=== PATIENT | male | born 1960 | race Caucasian/White ===

== ENCOUNTER → 2016-12-08 | Outpatient (CLI) | payer BC ==
--- NOTE | 2016-12-09 10:50 | ECHOF ---
Referral Reason:R00.2 Palpitations MEASUREMENTS -------- HEIGHT: 170.2 cm WEIGHT: 88.5 kg BP: RVIDd: 2.7 cm (< 3.3) IVSd: 1.1 cm (0.6 - 1.1) LVIDd: 5.1 cm (3.9 - 5.3) LVPWd: 1.0 cm (0.6 - 1.1) IVSs: 1.4 cm LVIDs: 3.2 cm LVPWs: 1.6 cm LA Diam: 4.1 cm (2.7 - 3.8) Ao Diam: 3.3 cm (2.0 - 3.7) AV Cusp: 1.7 cm (1.5 - 2.6) LA Diam: 4.3 cm (2.7 - 3.8) MV EXCURSION: 20.130 mm (> 18.000) MV EF SLOPE: 144 mm/s (70 - 150) EPSS: 0.3 cm MV E Vernon: 0.56 m/s MV DecT: 162 ms MV A Vernon: 0.71 m/s MV E/A Ratio: 0.80 AR PHT: 468 ms RAP: 5.00 mmHg RVSP: 26.36 mmHg FINDINGS -------- Sinus rhythm. This was a technically good study. There is borderline concentric left ventricular hypertrophy. Overall left ventricular systolic function is mildly impaired with, an EF between 45 - 50 %. The right ventricle is normal in size. The left atrial size is normal. The right atrial size is normal. CONCLUSIONS -------- 1. There is borderline concentric left ventricular hypertrophy. MERCHANDISE WORKER: Mary Cunha RDCS
== END | disposition home or self-care (01) ==
LOC: RADECHMAIN 14:58
PROVIDERS: ATTEND Internal Medicine
DX: I51.7 Cardiomegaly (principal)
CPT/HCPCS: 93306

== ENCOUNTER → 2017-01-01 | Outpatient (CLI) | payer BC ==
--- NOTE | 2017-01-01 08:31 | XR ---
Bilateral knees HISTORY: Bilateral knee pain 3 views of each knee are submitted. There is marginal spurring present in the medial compartments, joint space slightly reduced in the me dial compartment within the left knee. No evident joint effusions, spurring present at the patellofem oral joints. IMPRESSION: Osteoarthritis.
== END | disposition home or self-care (01) ==
LOC: RADXRMAIN 08:05
PROVIDERS: ATTEND Internal Medicine
DX: M17.0 Bilateral primary osteoarthritis of knee (principal)

== ENCOUNTER → 2017-01-21 | Outpatient (CLI) | payer BC ==
[2017-01-21 11:58] LABS: CH 32.3; CHCM 34.1; HCT 51.9 % (39.0-53.0); HDW 2.41; HGB 17.1 gm/dL (13.0-17.5); MCH 31.4 pg (25.0-35.0); MCV 95.2 fL (80.0-100.0); Mean Platelet Volume 8.7; RBC 5.45 m/uL (4.30-5.90); RDW 13.4 % (11.5-15.5); WBC 6.8 k/uL (3.8-10.6)
[2017-01-21 12:13] LABS: Anion Gap 8 mmol/L; Blood Urea Nitrogen 9 mg/dL (9-20); Carbon Dioxide 30 mmol/L (22-30); Chloride 102 mmol/L (98-107); Non-African American GFR(MDRD) >60 (>60 ml/min/1.73 sqM); Potassium 4.9 mmol/L (3.5-5.1); Sodium 140 mmol/L (137-145)
== END | disposition home or self-care (01) ==
LOC: LABPAT 11:00
PROVIDERS: ATTEND Internal Medicine Interventional Cardiology
DX: Z01.812 Encounter for preprocedural laboratory examination (principal); R94.30 Abnormal result of cardiovascular function study, unspecified
CPT/HCPCS: 80051; 82565; 84520; 85027

== ENCOUNTER 2017-01-29 06:02 | Day surgery (SDC) | payer BC ==
[~2017-01-29 06:02] MED LIST: ALPRAZolam 0.25 MG TAB PO PRN; ALPRAZolam 0.5 MG TAB PO PRN; ASPIRIN 325 MG TAB PO STA; ATORVASTATIN 80 MG TAB PO STA; NITROGLYCERIN SL TABS 0.4 MG TAB SUBLINGUAL PRN; SODIUM CHLORIDE 0.9% 1,000 ML in EMPTY BAG 1 BAG IV ONE
[2017-01-29 06:28] VITALS: TEMP 98.1
[2017-01-29] MEDS ORDERED: fentaNYL (PF) 50 MCG/ML 2 ML AMP IV ONE (07:33)
[2017-01-29] MEDS ORDERED: LIDOCAINE 2% INJ 20 MG/ML SQ ONE (07:35)
[2017-01-29] MEDS ORDERED: VERAPAMIL SYRINGE (5 MG/10 ML) INTRAARTER ONE (07:41)
[2017-01-29] MEDS ORDERED: IOHEXOL 350 MG/ML 125ML BOTTLE INJ ONE (07:52)
[2017-01-29] MEDS ORDERED: RX INFO: IV CONTRAST WAS GIVEN 1 EACH MISC MISCELLANE PRN (08:06)
[2017-01-29] MEDS ORDERED: MOMETASONE INHALATION PRN (08:07)
[2017-01-29] MEDS ORDERED: FORMOTEROL INHALATION PRN (08:07)
[2017-01-29] MEDS ORDERED: LORazepam 1 MG TAB PO PRN (08:07)
[2017-01-29 08:14] VITALS: RESP 16
[2017-01-29] MEDS ORDERED: SODIUM CHLORIDE 0.9% 1,000 ML IV SCH (08:15)
[2017-01-29] MEDS ORDERED: buPROPion 100 MG TAB PO SCH (09:00)
[2017-01-29] MEDS ORDERED: PRAVASTATIN SODIUM 20 MG TAB PO SCH (09:00)
[2017-01-29] MEDS ORDERED: METOPROLOL TARTRATE 50 MG TAB PO SCH (09:00)
[2017-01-29 09:54] VITALS: BP 112/68; PULSE 62
--- NOTE | 2017-01-29 18:31 | CC ---
DATE OF SERVICE: Mr. Roldan is 56-year-old male with no prior documented history of coronary artery disease, who has been noted to have frequent ventricular ectopic activity. Subsequently underwent a myocardial perfusion imaging that revealed evidence of inducible ischemia with impaired left ventricular systolic function. In view of that, recommendation made regarding cardiac catheterization. The procedure as well as the risks and complications were discussed with the patient who is in full understanding and agreement. PROCEDURE: The patient was brought to the Maintenance Planner in a fasting, semi-sedate state after receiving fentanyl and Benadryl and achieving moderate conscious sedated state, using Xylocaine anesthesia and Seldinger techniques, 6 Namibian sheath was introduced in the right radial artery. Selective right and left coronary angiography was performed using 5 Namibian 3-1/2 Bend right and left Jovana catheters. Multiple view of the coronary arteries including hemiaxial views were obtained. Following that, a 5 [place]ibian tight pigtail catheter was introduced into the left ventricle and a 30 degrees RODRIGUEZ view of the left ventricle was obtained. Following that, catheter and sheaths were removed. Hemostasis was obtained with deployment of TR band. There were no immediate complications. Patient was returned to his room in stable condition. Of note, the patient received 4500 units of intravenous heparin. FINDINGS: LEFT MAIN: This is a short-sized vessel bifurcating into the left circumflex, left anterior descending artery. Left main coronary artery is without any significant obstructive disease. LEFT ANTERIOR DESCENDING ARTERY: This is a large-size vessel reaching toward the apex with a wrap around the apex segment, giving rise to 3 diagonal branches. The third one is moderate in caliber. The others are small in caliber. The left anterior descending artery after the takeoff of the diagonal branch has mild plaque of 10%. The rest of the vessel has no high-grade stenosis. Left circumflex: This is a large dominant vessel, giving rise to a large proximal obtuse marginal branch distally bifurcating into PDA and posterolateral segment and branches. The left circumflex as well as its branches have no evidence of obstructive coronary artery disease. Right coronary artery: This is a small nondominant vessel that has no evidence of high-grade stenosis. LEFT VENTRICULOGRAM: Left ventriculogram was performed in 30 degrees RODRIGUEZ view and revealed normal left ventricular size and systolic function. Ejection fraction 55%. There was no significant mitral regurgitation. HEMODYNAMICS: There was no gradient across the aortic valve. The left ventricular end-diastolic pressure was 18 mmHg. Duration of procedure: 25 minutes. RESULT: 1. Minimal intimal disease involving the mid left anterior descending. 2. Normal left ventricular size and systolic function. 3. Dominant left coronary system. RECOMMENDATION: In view of findings and anatomy, I recommend continued medical therapy with aggressive coronary risk factor modifications that have been initiated. Those findings and recommendations were discussed with the patient and his family who are in full understanding and agreement.
--- NOTE | 2017-01-29 18:33 | LTR ---
January 29, 2017 RE: JamarIsra Dear Dr. David: I had the pleasure of performing cardiac catheterization on Mr. Roldan at [facility] on January 29. A copy of procedure note will be forwarded to you. In brief, he was found to have minimal plaque in the mid left anterior descending with a preserved systolic function. Based on those findings, I recommend continued medical therapy with aggressive coronary risk factor modifications that you have initiated. Thank you again for allowing me to participate in his care. Please feel free to call for questions. Sincerely, MELIZA PIZANO MD
[2017-01-29] MEDS ORDERED: NON-FORMULARY DRUG (Trazodone Hcl [Trazodone Hcl] 150 MG) PO SCH (21:00)
== END 2017-01-29 13:05 | disposition home or self-care (01) ==
LOC: CATHCVL 06:02
PROVIDERS: ATTEND Internal Medicine Interventional Cardiology
DX: I25.10 Atherosclerotic heart disease of native coronary artery without angina pectoris (principal); R94.39 Abnormal result of other cardiovascular function study; I42.9 Cardiomyopathy, unspecified; R00.2 Palpitations; E78.2 Mixed hyperlipidemia; J45.909 Unspecified asthma, uncomplicated; G47.33 Obstructive sleep apnea (adult) (pediatric); E78.00 Pure hypercholesterolemia, unspecified; Z82.49 Family history of ischemic heart disease and other diseases of the circulatory system; Z79.82 Long term (current) use of aspirin; Z79.52 Long term (current) use of systemic steroids; Z79.899 Other long term (current) drug therapy; Z91.09 Other allergy status, other than to drugs and biological substances
CPT/HCPCS: 93458; 99152; 99153; C1894; C1769; J2001; J3010; J1644; Q9967

== ENCOUNTER → 2019-03-16 | Outpatient (CLI) | payer BC ==
--- NOTE | 2019-03-16 15:45 | US ---
EXAMINATION TYPE: US kidneys/renal and bladder DATE OF EXAM: 03/16/2019 COMPARISON: NONE CLINICAL HISTORY: N18.9 Chronic kidney disease. 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 Low-lying right kidney is redemonstrated No nephrolithiasis is seen. No masses are identified. The urinary bladder is anechoic. Bilateral ureteral jets are not seen. IMPRESSION: No hydronephrosis is evident bilaterally.
== END | disposition home or self-care (01) ==
LOC: RADUSWWP 14:55
PROVIDERS: ATTEND Internal Medicine
DX: N18.9 Chronic kidney disease, unspecified (principal)
CPT/HCPCS: 76770

== ENCOUNTER 2019-05-26 12:53 | Day surgery (SDC) | payer BC ==
[2019-05-23 16:11] VITALS: BMI 29.7
[~2019-05-26 12:53] MED LIST changes: -ALPRAZolam 0.25 MG TAB PO PRN; -ALPRAZolam 0.5 MG TAB PO PRN; -ASPIRIN 325 MG TAB PO STA; -ATORVASTATIN 80 MG TAB PO STA; +DEXAMETHASONE SOD PHOSPHATE 10 MG/ML 1 ML VIAL IV ONE; +HEPARIN SODIUM,PORCINE 5,000 UNIT/ML 1 ML VIAL SQ ONE; +HYDROmorphone 0.5 MG/0.5 ML SYRINGE IVP PRN; +LACTATED RINGERS 1,000 ML IV SCH; +LIDOCAINE 1% 20 ML VIAL (10MG/ML) FOR IV START INTRADERMA PRN; -NITROGLYCERIN SL TABS 0.4 MG TAB SUBLINGUAL PRN; +ONDANSETRON 4 MG/2 ML VIAL IVP ONE; +SCOPOLAMINE 1.5MG/72HR PATCH TRANSDERM ONE; -SODIUM CHLORIDE 0.9% 1,000 ML in EMPTY BAG 1 BAG IV ONE
[2019-05-26] MEDS ORDERED: MIDAZOLAM (PF) 2 MG/2 ML VIAL IV ONE (13:48)
[2019-05-26] MEDS ORDERED: fentaNYL (PF) 50 MCG/ML 2 ML AMP IV ONE (13:49)
--- NOTE | 2019-05-26 14:18 | P.ANPRN ---
Procedure Note - Anesthesia - Nerve Block Performed Bilateral Rectus Abdominis Single Time Out Performed: Yes Date of Procedure: 05/26/19 Procedure Start Time: 13:48 Procedure Stop Time: 13:58 Location of Patient Procedure: PreOp Indication: Acute Post-Operative Pain, Requested by Surgeon Sedation Type: Sedate with meaningful contact maintained Preparation: Sterile Prep Position: Supine Catheter: None Needle Types: Pajunk Needle Gauge: 21 Ultrasound used to visualize needle placement: Yes Ultrasound used to observe medication spread: Yes Injectate: 0.5% Ropivacaine (see comment for volume) (12 cc + 2 mg dexamethasone per side) Blood Aspirated: No Pain Paresthesia on Injection Noted: No Resistance on Injection: Normal Image Stored and Saved: Yes Events: Uneventful and Well Tolerated
[2019-05-26] MEDS ORDERED: ROPIVACAINE 5 MG/ML 30 ML VIAL ONE (14:29)
[2019-05-26] MEDS ORDERED: DEXAMETHASONE SOD PHOSPHATE 4 MG/ML 1 ML VIAL ONE (14:29)
[2019-05-26] MEDS ORDERED: LIDOCAINE 1% INJ 10MG/ML (20 ML MDV) ONE (14:29)
[2019-05-26] MEDS ORDERED: NEOSTIGMINE 1 MG/ML 10 ML VIAL ONE (14:29)
[2019-05-26] MEDS ORDERED: fentaNYL (PF) 50 MCG/ML 2 ML AMP ONE (14:29)
[2019-05-26] MEDS ORDERED: MIDAZOLAM 2 MG/2 ML VIAL ONE (14:29)
[2019-05-26] MEDS ORDERED: GLYCOPYRROLATE 0.2 MG/ML 2 ML VIAL ONE (14:29)
[2019-05-26] MEDS ORDERED: ROCURONIUM BROMIDE 10 MG/ML 10 ML VIAL IV ONE (14:29)
[2019-05-26] MEDS ORDERED: PROPOFOL 10 MG/ML 20 ML VIAL IV ONE (14:29)
[2019-05-26] MEDS ORDERED: BUPIVACAINE (PF) 0.25% 30 ML VIAL SQ ONE ×2 (14:31→15:04)
--- NOTE | 2019-05-26 15:20 | P.OP ---
Date of Procedure: 05/26/19 Preoperative Diagnosis: incarcerated umbilical hernia Postoperative Diagnosis: Same Procedure(s) Performed: Repair of incarcerated umbilical hernia with mesh Anesthesia: GETA Estimated Blood Loss (ml): 2 Condition: stable Disposition: same day Description of Procedure: Patient is brought operative suite remained in the supine position underwent general endotracheal anesthesia per Department of anesthesia prepped and draped in the usual sterile fashion timeout performed correct patient correct procedure correct site was verified. A 4 cm curvilinear incision was made just inferior to the umbilicus carried down to the fascia of the umbilicus was then bluntly encircled and the hernia sac was removed from the umbilical stalk using Bovie cautery and Metzenbaum scissors. The incarcerated umbilical hernia was noted to be containing omentum. This was ligated and sent to pathology. The hernia was then reduced was noted to be approximately 1 cm. A small ventral ex mesh was placed and interrupted 0 Vicryl suture was used to suture in the mesh closing the hernia defect. The wound was then irrigated hemostasis was achieved the umbilicus was tacked back down the fascia using 3-0 Vicryl. The skin was then closed in layers using 3-0 Vicryl subdermal sutures followed by 4-0 running subcuticular Vicryl sutures. Sterile dressing was applied patient tolerated the procedure well no apparent complications Plan - Discharge Summary Discharge Rx Participant: No New Discharge Prescriptions: No Action Mometasone/Formoterol [Dulera 200 Mcg/5 Mcg Inhaler] 1 inhalation INHALATION DIRECTED PRN PRN Reason: Shortness Of Breath Pravastatin Sodium [Pravachol] 20 mg PO DAILY Metoprolol Tartrate [Lopressor] 50 mg PO BID LORazepam [Ativan] 1 mg PO BID PRN PRN Reason: Anxiety buPROPion [Wellbutrin] 450 mg PO DAILY Multivitamins, Thera [Multivitamin (formulary)] 1 tab PO DAILY Montelukast [Singulair] 10 mg PO DAILY Fenofibrate (Unkn.Dose) 1 tab PO DAILY Aspirin [Adult Low Dose Aspirin EC] 81 mg PO DAILY Finasteride [Proscar] 5 mg PO DAILY Discharge Medication List LORazepam [Ativan] 1 mg PO BID PRN 01/26/17 [History] Metoprolol Tartrate [Lopressor] 50 mg PO BID 01/26/17 [History] Mometasone/Formoterol [Dulera 200 Mcg/5 Mcg Inhaler] 1 inhalation INHALATION DIRECTED PRN 01/26/17 [History] Pravastatin Sodium [Pravachol] 20 mg PO DAILY 01/26/17 [History] buPROPion [Wellbutrin] 450 mg PO DAILY 01/26/17 [History] Aspirin [Adult Low Dose Aspirin EC] 81 mg PO DAILY 05/23/19 [History] Fenofibrate (Unkn.Dose) 1 tab PO DAILY 05/23/19 [History] Finasteride [Proscar] 5 mg PO DAILY 05/23/19 [History] Montelukast [Singulair] 10 mg PO DAILY 05/23/19 [History] Multivitamins, Thera [Multivitamin (formulary)] 1 tab PO DAILY 05/23/19 [History]
[2019-05-26 15:33] VITALS: TEMP 96.9
[2019-05-26 16:12] VITALS: RESP 16
[2019-05-26] MEDS ORDERED: HYDROcodone/APAP 5-325MG 1 EACH TAB PO ONE (16:42)
[2019-05-26 17:02] VITALS: BP 112/75; PULSE 79
== END 2019-05-26 17:40 | disposition home or self-care (01) ==
LOC: OR 12:53
PROVIDERS: ATTEND Student in an Organized Health Care Education/Training Program
DX: K42.0 Umbilical hernia with obstruction, without gangrene (principal); E78.5 Hyperlipidemia, unspecified; N28.9 Disorder of kidney and ureter, unspecified; N40.0 Benign prostatic hyperplasia without lower urinary tract symptoms; J45.909 Unspecified asthma, uncomplicated; M19.90 Unspecified osteoarthritis, unspecified site; F41.9 Anxiety disorder, unspecified; F32.9 Major depressive disorder, single episode, unspecified; K21.9 Gastro-esophageal reflux disease without esophagitis; Z79.82 Long term (current) use of aspirin; Z79.51 Long term (current) use of inhaled steroids; Z79.899 Other long term (current) drug therapy; Z82.5 Family history of asthma and other chronic lower respiratory diseases; Z81.8 Family history of other mental and behavioral disorders; Z91.018 Allergy to other foods; Z91.013 Allergy to seafood; Z91.048 Other nonmedicinal substance allergy status
CPT/HCPCS: 64488; 88302; 49587; C1781; J2250 ×2; J1644; J1100 ×2; J2710; J0690; J2405; J2001; J3010; J2795; J2704

== ENCOUNTER → 2019-10-03 | Outpatient (CLI) | payer BC ==
[2019-10-03 09:26] LABS: Basophils % (A) 1 %; Eosinophils # (A) 0.4 k/uL (0-0.7); Eosinophils % (A) 7 %; HCT 44.7 % (39.0-53.0); HGB 14.9 gm/dL (13.0-17.5); Lymphocytes # (A) 1.4 k/uL (1.0-4.8); Lymphocytes % (A) 23 %; MCH 30.8 pg (25.0-35.0); MCHC 33.2 g/dL (31.0-37.0); MCV 92.8 fL (80.0-100.0); Mean Platelet Volume 8.1; Monocytes # (A) 0.4 k/uL (0-1.0); Monocytes % (A) 7 %; Neutrophils # (A) 3.7 k/uL (1.3-7.7); Neutrophils % (A) 60 %; Platelet Count 211 k/uL (150-450); RBC 4.82 m/uL (4.30-5.90); RDW 12.6 % (11.5-15.5); WBC 6.2 k/uL (3.8-10.6)
[2019-10-03 17:55] LABS: African American GFR (CKD) 64.2 (60.0-200.0); Albumin 4.5 g/dL (3.80-4.90); Albumin/Globulin Ratio 1.96 (1.60-3.17); Anion Gap 5.5 mmol/L (4.00-12.00); BUN/Creat Ratio 13.57 Ratio (12.00-20.00); Calcium 10.1 mg/dL (8.7-10.3); Carbon Dioxide 28.5 mmol/L (21.6-31.8); Chol/HDL Ratio 3.36; Globulin 2.3 g/dL (1.6-3.3); LDL Cholesterol,Calculated 96.4 mg/dL (0.0-131.0); Non-African American GFR(CKD) 55.4 (60.0-200.0); Potassium 4.4 mmol/L (3.5-5.5); Total Bilirubin 0.6 mg/dL (0.2-1.2); Total Protein 6.8 g/dL (6.2-8.2); VLDL Calculation 42.6 mg/dL (5.00-40.00)
[2019-10-03 19:05] LABS: Hemoglobin A1C 5.3 % (4.0-6.0)
== END | disposition home or self-care (01) ==
LOC: LABWHC1 07:38
PROVIDERS: ATTEND Internal Medicine
DX: I12.9 Hypertensive chronic kidney disease with stage 1 through stage 4 chronic kidney disease, or unspecified chronic kidney disease (principal); N18.3 Chronic kidney disease, stage 3 (moderate); D63.1 Anemia in chronic kidney disease; N39.0 Urinary tract infection, site not specified; E21.3 Hyperparathyroidism, unspecified; M10.9 Gout, unspecified; E78.5 Hyperlipidemia, unspecified; F32.9 Major depressive disorder, single episode, unspecified
CPT/HCPCS: 36415; 80053; 80061; 82550; 83036; 84443; 85025

== ENCOUNTER → 2019-10-03 | Outpatient (CLI) | payer BC ==
--- NOTE | 2019-10-03 09:50 | MM ---
Reason for exam: clinical finding. History: Family history of breast cancer in maternal grandmother. Took other hormone for 1 year beginning at age 56. Physical Findings: Nurse did not find any significant physical abnormalities on exam. MG Diagnostic Mammo w CAD MISTY Bilateral CC and MLO view(s) were taken. Flame shaped gynecomastia greater in the right breast. These results were verbally communicated with the patient and result sheet given to the patient on 10/03/19. ASSESSMENT: Benign, BI-RAD 2 RECOMMENDATION: Clinical management of both breasts. Manage patient on a clinical basis.
--- NOTE | 2019-10-03 09:52 | USB ---
Reason for exam: clinical finding. History: Family history of breast cancer in maternal grandmother. Took other hormone for 1 year beginning at age 56. US Breast Limited RT Right limited breast ultrasound including focal area of concern, retroareolar and axilla demonstrates a 3.6cm solid, hypoechoic lesion at the posterior nipple. Gynecomastia greater in the right breast is retroareolar. These results were verbally communicated with the patient and result sheet given to the patient on 10/03/19. ASSESSMENT: Benign, BI-RAD 2 RECOMMENDATION: Clinical management of both breasts. Manage patient on a clinical basis.
== END | disposition home or self-care (01) ==
LOC: RADMAMWWP 07:30
PROVIDERS: ATTEND Internal Medicine
DX: N63.0 Unspecified lump in unspecified breast (principal)
CPT/HCPCS: 77066

== ENCOUNTER → 2020-04-04 | Outpatient (CLI) | payer BC ==
--- NOTE | 2020-04-04 13:46 | XR ---
EXAMINATION TYPE: XR Hip Complete RT DATE OF EXAM: 04/04/2020 COMPARISON: NONE HISTORY: 59-year-old male M25.551, right hip pain TECHNIQUE: 2 views FINDINGS: Mild degenerative spurring at the right hip. Subchondral cyst along the superolateral acetabulum. Joyce nt spaces relatively maintained. No acute fracture, subluxation, or dislocation seen. IMPRESSION: Mild right hip OA. No acute osseous abnormality seen.
== END | disposition home or self-care (01) ==
LOC: RADXRMAIN 13:26
PROVIDERS: ATTEND Internal Medicine
DX: M16.11 Unilateral primary osteoarthritis, right hip (principal)
CPT/HCPCS: 73502

== ENCOUNTER → 2020-04-11 | Outpatient (CLI) | payer BC ==
[2020-04-11 13:04] LABS: HCT 43.7 % (39.0-53.0); HGB 14.6 gm/dL (13.0-17.5); MCH 31.3 pg (25.0-35.0); MCHC 33.4 g/dL (31.0-37.0); MCV 93.7 fL (80.0-100.0); Mean Platelet Volume 8.5; Platelet Count 197 k/uL (150-450); RBC 4.66 m/uL (4.30-5.90); RDW 12.9 % (11.5-15.5); WBC 7.5 k/uL (3.8-10.6)
[2020-04-11 13:13] LABS: Appearance,Urine Clear (Clear); Bilirubin,Urine Negative (Negative); Blood,Urine Negative (Negative); Color,Urine Yellow; Glucose,Urine (UA) Negative (Negative); Ketones,Urine Negative (Negative); Leukocyte Esterase,Urine Negative (Negative); Nitrite,Urine Negative (Negative); Protein,Urine Negative (Negative); Specific Gravity,Urine 1.007 (1.001-1.035); Urobilinogen,Urine <2.0 mg/dL (<2.0)
[2020-04-11 20:44] LABS: % Iron Saturation 31.48 (15.00-50.00); African American GFR (CKD) 63.7 (60.0-200.0); Albumin 4.6 g/dL (3.80-4.90); Albumin/Globulin Ratio 1.77 (1.60-3.17); Anion Gap 7.3 mmol/L (4.00-12.00); Calcium 10.3 mg/dL (8.7-10.3); Carbon Dioxide 24.7 mmol/L (21.6-31.8); Globulin 2.6 g/dL (1.6-3.3); Magnesium 1.9 mg/dL (1.5-2.4); Phosphorus 3.1 mg/dL (2.4-5.1); Potassium 4.8 mmol/L (3.5-5.5); Total Bilirubin 0.6 mg/dL (0.2-1.2); Total Protein 7.2 g/dL (6.2-8.2); Uric Acid 5.5 mg/dL (3.7-8.7)
[2020-04-11 20:56] LABS: Ferritin 938.1 ng/mL (22.0-322.0)
== END | disposition home or self-care (01) ==
LOC: LABWHC1 11:51
PROVIDERS: ATTEND Internal Medicine
DX: N25.81 Secondary hyperparathyroidism of renal origin (principal); N39.0 Urinary tract infection, site not specified; E55.9 Vitamin D deficiency, unspecified; M10.9 Gout, unspecified; D63.1 Anemia in chronic kidney disease; N18.3 Chronic kidney disease, stage 3 (moderate)
CPT/HCPCS: 36415; 80053; 81003; 82306; 82728; 83540; 83550; 83735; 83970; 84100; 84550; 85027

== ENCOUNTER → 2021-12-18 | Outpatient (CLI) | payer BC ==
--- NOTE | 2021-12-18 16:15 | US ---
EXAMINATION TYPE: US kidneys/renal and bladder DATE OF EXAM: 12/18/2021 COMPARISON: Prior ultrasound September 02, 2021 CLINICAL HISTORY: N18.31 ckd. Hx right pelvic kidney EXAM MEASUREMENTS: Right Kidney: 8.7 x 2.9 x 4.2 cm Left Kidney: 11.1 x 4.8 x 4.8 cm Right Kidney: Located RLQ. Small in size compared to contralateral kidney. Left Kidney: No hydronephrosis or masses seen Bladder: Distended, anechoic Left Jet seen When scanning right kidney region adjacent liver is heterogeneously hyperechoic. There is no evidence for hydronephrosis at this point in time. No nephrolithiasis is seen. Right kidney remains abnormal ly located inferiorly with poor cortical medullary differentiation similar to prior. The urinary cristela dder is adequately distended. Bilateral ureteral jets are not seen. IMPRESSION: Asymmetric increased chronic medical renal disease to the malpositioned right kidney rede monstrated. No hydronephrosis noted bilaterally. No significant change from prior.
== END | disposition home or self-care (01) ==
LOC: RADUSWWP 15:37
PROVIDERS: ATTEND Internal Medicine
DX: N18.31 Chronic kidney disease, stage 3a (principal); N28.89 Other specified disorders of kidney and ureter
CPT/HCPCS: 76770

== ENCOUNTER → 2023-02-19 | Outpatient (CLI) | payer BC ==
--- NOTE | 2023-02-19 16:02 | US ---
EXAMINATION TYPE: US kidneys/renal and bladder DATE OF EXAM: 02/19/2023 COMPARISON: US 2021 CLINICAL INDICATION: Male, 62 years old with history of N18.31 CHRONIC KIDNEY DISEASE, STAGE 3A; EXAM MEASUREMENTS: Right Kidney: 8.5 x 3.6 x 4.2 cm Left Kidney: 10.6 x 5.1 x 5.2 cm Right Kidney: located in pelvis, small in size when compared to left kidney Left Kidney: No hydronephrosis or masses seen Bladder: wnl Bilateral Jets seen: no There is no evidence for hydronephrosis at this point in time. No nephrolithiasis is seen. No paul s are identified. Right kidney is located within the right lower pelvis. Right kidney is mildly smal ler than the left with poor corticomedullary differentiation similar to prior. The urinary bladder is anechoic. Bilateral ureteral jets are not seen. IMPRESSION: Asymmetric increased chronic medical renal disease to the malpositioned right kidney redemonstrated. No hydronephrosis or nephrolithiasis noted bilaterally. No significant change from prior.
== END | disposition home or self-care (01) ==
LOC: RADUSWWP 15:30
PROVIDERS: ATTEND Internal Medicine
DX: N18.31 Chronic kidney disease, stage 3a (principal)
CPT/HCPCS: 76770

== ENCOUNTER → 2024-03-10 | Outpatient (CLI) | payer BC ==
--- NOTE | 2024-03-14 10:35 | XR ---
EXAMINATION TYPE: XR lumbar spine with bend/flex DATE OF EXAM: 03/10/2024 12:39 PM CLINICAL INDICATION:Male, 63 years old with history of M54.50 Acute midline back pain without sciatic a; [facility] COMPARISON: None TECHNIQUE: XR lumbar spine with bend/flex - Frontal, lateral and coned in L5-S1 lateral views of the spine. FINDINGS: No evidence of any acute osseous pathology. No evidence of loss of vertebral body height i s seen. There is normal alignment of the lumbar vertebral bodies. Degenerative loss of disc height at L3-4 and L4-5. No evidence of instability with flexion and extension maneuvers IMPRESSION: 1. No acute fracture. 2. Mild multilevel disc degeneration. 3. No evidence of instability demonstrated.
== END | disposition home or self-care (01) ==
LOC: RADXRMAIN 12:21
PROVIDERS: ATTEND Internal Medicine
DX: M51.36 Other intervertebral disc degeneration, lumbar region (principal)
CPT/HCPCS: 72114

== ENCOUNTER → 2024-04-15 | Outpatient (CLI) | payer BC ==
--- NOTE | 2024-05-05 18:06 | MR ---
Site ID synapse default Patient Isra Roldan ID [id number] Age/Gender: 63Y, M Order # N/A Procedure MR lumbar wo con Date 04/15/2024 3:40:12 PM EXAMINATION TYPE: MR lumbar spine wo con DATE OF EXAM: 04/16/2024 COMPARISON: Lumbar spine radiographs 03/10/2024, MR C-spine/L-spine 09/30/2014 HISTORY: Low back pain that radiates down both legs. TECHNIQUE: Multiplanar, multisequence images of the lumbar spine were acquired without IV contrast. FINDINGS: The lumbar vertebral bodies do have preserved heights and alignment. Minimal multilevel d isc desiccation is present. Fatty filum terminale incidentally noted again. The conus medullaris and the distal spinal cord do appear unremarkable with regards to their signal intensity and morphology. L1-L2: No significant disc pathology is identified. The spinal canal and neural foramen are patent. L2-L3: No significant disc pathology is identified. The spinal canal and neural foramen are patent. L3-L4: Broad-based disc bulge with mild central canal stenosis. Bilateral facet arthropathy. Mild le ft and moderate right neural foraminal stenosis. L4-L5: Broad-based disc bulge is identified with associated enlargement of the facet joints. Ligamen korina flavum buckling contribute The spinal canal is mildly narrowed. Moderate left and [id number] e right neuroforaminal stenosis. L5-S1: Broad-based disc bulge without significant mass effect upon the thecal sac. Facet joints are enlarged. Mild left and moderate right neural foraminal stenosis. Other significant findings: Postsurgical changes from right total hip arthroplasty. Right kidney is a gain not in normal position and is inferiorly displaced with abnormal anterior axis. IMPRESSION: 1. Progression of mild multilevel degenerative disc disease from prior MR 09/30/2014. Disc bulges at L 3-L4 and L4-L5 result in mild central canal stenosis. 2. Multilevel facet arthropathy with varying degrees of neural foraminal stenosis described above.
== END | disposition home or self-care (01) ==
LOC: RADMRIMAIN 16:22
PROVIDERS: ATTEND Internal Medicine
DX: M48.061 Spinal stenosis, lumbar region without neurogenic claudication (principal); M47.816 Spondylosis without myelopathy or radiculopathy, lumbar region; M51.36 Other intervertebral disc degeneration, lumbar region
CPT/HCPCS: 72148